=== PATIENT | female | born 1940 | race Caucasian/White ===

== ENCOUNTER 2023-11-27 16:17 | Inpatient (IN) | payer MEDICARE ==
[~2023-11-27] VITALS: Ht 162.6 cm; Wt 59.1 kg
[2023-11-27 17:08] LABS: BASOPHILS % (AUTO) 0.7 % (0-1); EOSINOPHILS # (AUTO) 0.2 X10'3 (0-0.9); EOSINOPHILS % (AUTO) 2.8 % (0-6); HEMATOCRIT 34.8 % (35.0-45.0); HEMOGLOBIN 11.6 g/dl (12.0-16.0); LYMPHOCYTES # (AUTO) 1.4 X10'3 (1.1-4.8); LYMPHOCYTES % (AUTO) 21.6 % (21-51); MEAN CORPUSCULAR HEMOGLOBIN 30.2 PG (27.0-31.0); MEAN CORPUSCULAR HGB CONC 33.2 g/dL (33.0-36.5); MEAN CORPUSCULAR VOLUME 90.8 FL (78-98); MEAN PLATELET VOLUME 7.5 FL (7.4-10.4); MONOCYTES # (AUTO) 0.4 X10'3 (0-0.9); MONOCYTES % (AUTO) 6.5 % (2-12); NEUTROPHILS # (AUTO) 4.3 X10'3 (1.8-7.7); NEUTROPHILS % (AUTO) 68.4 % (42-75); PLATELET COUNT 175 X10'3 (140-440); RED BLOOD COUNT 3.84 X10'6 (4.20-5.60); RED CELL DISTRIBUTION WIDTH 14.9 % (11.5-14.5); WHITE BLOOD COUNT 6.3 X10'3 (4.5-11.0)
[2023-11-27 17:25] LABS: ALBUMIN 2.9 G/DL (3.4-5.0); ANION GAP 8 (8-16); BLOOD UREA NITROGEN 12 MG/DL (7-18); BUN/CREATININE RATIO 11.3 (10.0-20.0); CALCIUM 9.2 MG/DL (8.5-10.1); CHLORIDE 105 MMOL/L (99-107); CREATININE 1.06 MG/DL (0.40-0.90); GLUCOSE 102 MG/DL (70-104); POTASSIUM 4.2 MMOL/L (3.5-5.1); SODIUM 139 MMOL/L (135-145); TOTAL CARBON DIOXIDE 25.6 MMOL/L (24-32); eCRCL 36 ML/MIN; eGFR 50 ML/MIN
[2023-11-27 17:36] LABS: APTT 26 SECONDS (22-32); INR 1.1 INR
[2023-11-27] MEDS: ondansetron/PF 4mg/2ml inj IV ONE (18:51)
[2023-11-27] MEDS: morphine 2 MG/ML inj. syringe IV ONE (18:51)
[2023-11-27] MEDS ORDERED: potassium Cl 40MEQ/1/2NS 520ml 520 ML IV PRN (20:30)
[2023-11-27] MEDS ORDERED: morphine 2 MG/ML inj. syringe IV PRN (20:30)
[2023-11-27] MEDS ORDERED: mag hydrox/Alum hydrox/simeth 30ml oral suspension PO PRN (20:30)
[2023-11-27] MEDS ORDERED: magnesium sulf-water 2g/50mL 50 ML IV PRN (20:30)
[2023-11-27] MEDS ORDERED: magnesium hydroxide 30ml (MOM) UD suspension PO PRN (20:30)
[2023-11-27] MEDS ORDERED: potassium Cl 20 mEq SR tablet PO PRN ×2 (20:30)
[2023-11-27] MEDS ORDERED: ondansetron/PF 4mg/2ml inj IV PRN (20:30)
[2023-11-27] MEDS ORDERED: magnesium sulf-water 4G/100mL 100 ML IV PRN (20:30)
[2023-11-27] MEDS ORDERED: LISI5TAB22 PO (20:55)
[2023-11-27] MEDS ORDERED: ESCI-8 PO (20:55)
[2023-11-27] MEDS ORDERED: LOPE2CAP PO (20:55)
[2023-11-27] MEDS ORDERED: OMEP40CA21 PO (20:55)
[2023-11-27] MEDS ORDERED: MULT-1074 PO (20:55)
[2023-11-27] MEDS ORDERED: ATOR40TA PO (20:55)
[2023-11-27 22:00] VITALS: BP 150/66; PULSE 100; RESP 20; TEMP 97.7; O2SAT 92
[2023-11-27] MEDS: acetaminophen 325mg tablet PO PRN (22:20)
[2023-11-27] MEDS: morphine 2 MG/ML inj. syringe IV PRN (22:41)
[2023-11-27 23:00] VITALS: RESP 20; O2SAT 92
[2023-11-28 06:00] VITALS: BP 122/49; PULSE 76; RESP 16; TEMP 98.3; O2SAT 97
[2023-11-28 06:46] LABS: BASOPHILS % (AUTO) 0.4 % (0-1); EOSINOPHILS # (AUTO) 0.1 X10'3 (0-0.9); EOSINOPHILS % (AUTO) 1.3 % (0-6); HEMATOCRIT 32.2 % (35.0-45.0); HEMOGLOBIN 10.7 g/dl (12.0-16.0); LYMPHOCYTES # (AUTO) 1.3 X10'3 (1.1-4.8); LYMPHOCYTES % (AUTO) 22.1 % (21-51); MEAN CORPUSCULAR HEMOGLOBIN 30.4 PG (27.0-31.0); MEAN CORPUSCULAR HGB CONC 33.2 g/dL (33.0-36.5); MEAN CORPUSCULAR VOLUME 91.7 FL (78-98); MEAN PLATELET VOLUME 7.6 FL (7.4-10.4); MONOCYTES # (AUTO) 0.5 X10'3 (0-0.9); MONOCYTES % (AUTO) 7.9 % (2-12); NEUTROPHILS # (AUTO) 3.9 X10'3 (1.8-7.7); NEUTROPHILS % (AUTO) 68.3 % (42-75); PLATELET COUNT 159 X10'3 (140-440); RED BLOOD COUNT 3.51 X10'6 (4.20-5.60); RED CELL DISTRIBUTION WIDTH 14.4 % (11.5-14.5); WHITE BLOOD COUNT 5.7 X10'3 (4.5-11.0)
[2023-11-28 06:53] LABS: ALBUMIN 2.4 G/DL (3.4-5.0); ANION GAP 7 (8-16); BLOOD UREA NITROGEN 14 MG/DL (7-18); BUN/CREATININE RATIO 14.3 (10.0-20.0); CALCIUM 8.8 MG/DL (8.5-10.1); CHLORIDE 106 MMOL/L (99-107); CREATININE 0.98 MG/DL (0.40-0.90); GLUCOSE 91 MG/DL (70-104); MAGNESIUM 1.6 MG/DL (1.5-2.4); POTASSIUM 4.1 MMOL/L (3.5-5.1); SODIUM 140 MMOL/L (135-145); TOTAL CARBON DIOXIDE 26.9 MMOL/L (24-32); eCRCL 39 ML/MIN; eGFR 54 ML/MIN
[2023-11-28 08:00] VITALS: RESP 16; O2SAT 97
[2023-11-28] MEDS: docusate sod 100mg capsule PO SCH (08:00)
[2023-11-28] MEDS: K and/or MAG REPLACEMENT MC SCH (08:00)
[2023-11-28] MEDS: heparin, porcine 5000 units/ml vial SQ SCH (09:25)
[2023-11-28 10:00] VITALS: BP 120/49; PULSE 70; RESP 18; TEMP 97.9; O2SAT 94
[2023-11-28] MEDS: acetaminophen 325mg tablet PO PRN (10:21)
[2023-11-28 16:48] LABS: BILIRUBIN,URINE NEGATIVE (Neg); CLARITY,URINE CLOUDY (Clear); COLOR,URINE YELLOW (Yellow); GLUCOSE, URINE NEGATIVE (Neg); KETONES,URINE NEGATIVE (Neg); LEUKOCYTE ESTERASE ,URINE LARGE (Neg); NITRITES, URINE POSITIVE (Neg); OCCULT BLOOD,URINE TRACE-INTACT (Neg); PROTEIN,URINE NEGATIVE (Neg); UROBILINOGEN,URINE 0.2 E.U/dL (0.2-1.0)
[2023-11-28 17:05] LABS: UA COLLECTION TYPE FOLEY CATH
[2023-11-28 17:11] LABS: RBC,URINE 0-2 /HPF (0-2)
[2023-11-28] MEDS: HYDROcodone/acetaminophen 5mg/325mg tablet PO PRN (17:12)
[2023-11-28 17:13] LABS: WBC,URINE TNTC /HPF (0-4)
[2023-11-28 17:14] LABS: BACTERIA,URINE 3+ /HPF (Neg); SQUAMOUS EPITHELIAL CELL,UR MODERATE /LPF (FEW); WBC CLUMPS,URINE MANY /HPF (NEGATIVE)
[2023-11-28 18:00] VITALS: BP 123/59; PULSE 79; RESP 17; TEMP 98.4; O2SAT 97
[2023-11-28 20:00] VITALS: RESP 17; O2SAT 97
[2023-11-28] MEDS: LidoCAINE 2% Topical Jelly 11mL syringe (UROJET) TOP ONE (20:07)
[2023-11-28] MEDS: CefTRIAXone/D5W-Rocephin 1gm 50 ML IV SCH (20:18)
[2023-11-28] MEDS: hydrocortisone 1% cream 28gm TP SCH (20:18)
[2023-11-28 22:00] VITALS: BP 148/53; PULSE 78; RESP 15; TEMP 98.4; O2SAT 94
[2023-11-29] VITALS (18 sets, daily range): BP systolic 82–149; BP diastolic 30–72; PULSE 79–105; RESP 12–19; TEMP 97.3–98.8; O2SAT 93–100
[2023-11-29 06:18] LABS: ALBUMIN 2.4 G/DL (3.4-5.0); ANION GAP 7 (8-16); BLOOD UREA NITROGEN 13 MG/DL (7-18); CHLORIDE 104 MMOL/L (99-107); CREATININE 0.93 MG/DL (0.40-0.90); GLUCOSE 110 MG/DL (70-104); MAGNESIUM 1.5 MG/DL (1.5-2.4); POTASSIUM 4.2 MMOL/L (3.5-5.1); SODIUM 137 MMOL/L (135-145); TOTAL CARBON DIOXIDE 25.6 MMOL/L (24-32); eCRCL 41 ML/MIN; eGFR 58 ML/MIN
[2023-11-29 06:21] LABS: BASOPHILS % (AUTO) 0.6 % (0-1); EOSINOPHILS # (AUTO) 0.3 X10'3 (0-0.9); EOSINOPHILS % (AUTO) 4.1 % (0-6); HEMATOCRIT 35.8 % (35.0-45.0); HEMOGLOBIN 11.7 g/dl (12.0-16.0); LYMPHOCYTES # (AUTO) 1.4 X10'3 (1.1-4.8); LYMPHOCYTES % (AUTO) 20.3 % (21-51); MEAN CORPUSCULAR HEMOGLOBIN 30.1 PG (27.0-31.0); MEAN CORPUSCULAR HGB CONC 32.8 g/dL (33.0-36.5); MEAN CORPUSCULAR VOLUME 91.8 FL (78-98); MONOCYTES # (AUTO) 0.4 X10'3 (0-0.9); MONOCYTES % (AUTO) 6.3 % (2-12); NEUTROPHILS # (AUTO) 4.6 X10'3 (1.8-7.7); NEUTROPHILS % (AUTO) 68.7 % (42-75); PLATELET COUNT 162 X10'3 (140-440); RED CELL DISTRIBUTION WIDTH 14.9 % (11.5-14.5); WHITE BLOOD COUNT 6.8 X10'3 (4.5-11.0)
[2023-11-29 06:22] LABS: PRE OP PROTIME 11.2 SECONDS (9.0-12.0)
[2023-11-29] MEDS: pantoprazole 40mg Tablet.DR PO SCH (07:04)
[2023-11-29] MEDS: atorvastatin 20mg tablet PO SCH (07:04)
[2023-11-29] MEDS: ESCITALOPRAM 10 mg tablet 10 MG TABLET PO SCH (07:04)
[2023-11-29] MEDS: lisinopril 5mg tablet PO SCH (07:05)
[2023-11-29] MEDS ORDERED: BUPIVAcaine/dex-water/PF 7.5 mg/ml 2ml ampul ONE (14:57)
[2023-11-29] MEDS ORDERED: midazolam 1 mg/ML 2ml injection ONE (14:58)
[2023-11-29] MEDS ORDERED: fentaNYL/PF 50MCG/1 ML 2ML syringe ONE (14:59)
[2023-11-29] MEDS: tranexamic acid 100mg/ml inj. ONE (15:38)
[2023-11-29] MEDS ORDERED: phenylephrine 10mg/ml inj. -priapism dosing ONE (15:56)
[2023-11-29] MEDS ORDERED: ePHEDrine 50MG/ML INJ. ONE (15:56)
[2023-11-29] MEDS: vancomycin 1,000mg inj ONE (15:57)
[2023-11-29] MEDS ORDERED: meperidine/PF 25mg/ml syringe IV PRN (16:25)
[2023-11-29] MEDS ORDERED: HYDROmorphone/PF 0.2 MG/ML SYRINGE IV PRN (16:25)
[2023-11-29] MEDS ORDERED: morphine 2 MG/ML inj. syringe IV PRN (16:25)
[2023-11-29] MEDS: ringers solution, lacted 1,000 ML IV SCH (16:25)
[2023-11-29] MEDS ORDERED: ondansetron/PF 4mg/2ml inj IV PRN (16:25)
[2023-11-29] MEDS: acetaminophen 1,000mg/100ml IV 100 ML IV ONE (17:14)
[2023-11-30] MEDS ORDERED: cefazolin 2gm/D5W 100mL 100 ML IV SCH
[2023-11-30 02:00] VITALS: BP 152/65; PULSE 94; RESP 16; TEMP 98.2; O2SAT 97
[2023-11-30 06:30] VITALS: BP 141/56; PULSE 85; RESP 16; TEMP 97.1; O2SAT 94
[2023-11-30 07:56] LABS: BASOPHILS % (AUTO) 0.3 % (0-1); EOSINOPHILS % (AUTO) 0.4 % (0-6); HEMATOCRIT 33.8 % (35.0-45.0); HEMOGLOBIN 11.1 g/dl (12.0-16.0); LYMPHOCYTES % (AUTO) 12.9 % (21-51); MEAN CORPUSCULAR HEMOGLOBIN 30.3 PG (27.0-31.0); MEAN CORPUSCULAR HGB CONC 32.9 g/dL (33.0-36.5); MEAN CORPUSCULAR VOLUME 91.9 FL (78-98); MEAN PLATELET VOLUME 7.6 FL (7.4-10.4); MONOCYTES # (AUTO) 0.5 X10'3 (0-0.9); MONOCYTES % (AUTO) 6.4 % (2-12); NEUTROPHILS # (AUTO) 6.1 X10'3 (1.8-7.7); PLATELET COUNT 160 X10'3 (140-440); RED BLOOD COUNT 3.68 X10'6 (4.20-5.60); RED CELL DISTRIBUTION WIDTH 14.9 % (11.5-14.5); WHITE BLOOD COUNT 7.7 X10'3 (4.5-11.0)
[2023-11-30 08:00] VITALS: RESP 16; O2SAT 96
[2023-11-30 08:15] LABS: ALBUMIN 2.3 G/DL (3.4-5.0); ANION GAP 6 (8-16); BLOOD UREA NITROGEN 13 MG/DL (7-18); BUN/CREATININE RATIO 13.3 (10.0-20.0); CALCIUM 8.9 MG/DL (8.5-10.1); CHLORIDE 102 MMOL/L (99-107); CREATININE 0.98 MG/DL (0.40-0.90); GLUCOSE 120 MG/DL (70-104); MAGNESIUM 1.4 MG/DL (1.5-2.4); POTASSIUM 4.3 MMOL/L (3.5-5.1); SODIUM 135 MMOL/L (135-145); TOTAL CARBON DIOXIDE 26.7 MMOL/L (24-32); eCRCL 39 ML/MIN; eGFR 54 ML/MIN
[2023-11-30 10:00] VITALS: BP 142/66; PULSE 107; RESP 18; TEMP 98.7; O2SAT 94
[2023-11-30] MEDS: magnesium Cl slow-release 64mg tablet PO PRN (16:32)
[2023-11-30 17:34] VITALS: RESP 17
[2023-11-30] MEDS: HYDROcodone/acetaminophen 10/325mg tab PO PRN (17:34)
== END 2023-11-30 18:45 | DRG 522 ==
LOC: ER 16:18 → ED HOLD 20:35 → ORTHO 4S 21:40
PROVIDERS: ADMIT Surgery; ATTEND Family Medicine
PROC: BW2G1ZZ Computerized Tomography (CT Scan) of Pelvic Region using Low Osmolar Contrast (ICD-10-PCS; 2023-11-27)
PROC: 0SRS0JA Replacement of Left Hip Joint, Femoral Surface with Synthetic Substitute, Uncemented, Open Approach (ICD-10-PCS; principal; 2023-11-29 14:57)
DX: S72.032A Displaced midcervical fracture of left femur, initial encounter for closed fracture (principal); E44.1 Mild protein-calorie malnutrition; E78.5 Hyperlipidemia, unspecified; E88.09 Other disorders of plasma-protein metabolism, not elsewhere classified; Z66 Do not resuscitate; R82.71 Bacteriuria; S62.628A Displaced fracture of middle phalanx of other finger, initial encounter for closed fracture; W18.39XA Other fall on same level, initial encounter; R73.03 Prediabetes; D50.8 Other iron deficiency anemias; Z88.2 Allergy status to sulfonamides; Z79.899 Other long term (current) drug therapy; Z98.84 Bariatric surgery status; Z90.710 Acquired absence of both cervix and uterus; Z87.891 Personal history of nicotine dependence; Y93.89 Activity, other specified; Y92.89 Other specified places as the place of occurrence of the external cause; Y99.8 Other external cause status; Z68.22 Body mass index [BMI] 22.0-22.9, adult
CPT/HCPCS: 36415; 70450; 71045; 72125; 72192; 73060; 73130; 73200; 73501; 73502; 80048; 81001; 82948; 83735; 84132; 85025; 85610; 85730; 87077; 87081; 87088; 87186; 92508; 92616; 93005; 96374; 96375; 97110; 97161; 97530; 99285; A4314; A4618; A6446; A7000; C1776; G0378; J0131; J0696; J1644; J2250; J2270; J2370; J2405; J3010; J3370; J3490; J7040; J7120